=== PATIENT | male | born 1970 | race Caucasian/White ===

== ENCOUNTER 2021-05-06 02:23 | Inpatient (IN) | payer OTHER ==
[2021-05-06 03:07] LABS: #Monocytes 0.4 10x3/uL (0.0-1.1); #Neutrophils 5.3 10x3/uL (1.5-8.4); %Basophils 0.2 % (0.0-2.0); %Lymphocytes 12.8 % (18.0-47.0); %Monocytes 6.1 % (0.0-10.0); %Neutrophils 80.1 % (40.0-75.0); Hemoglobin 15.7 g/dL (13.5-17.5); Mean Corpuscular HGB CONC 35.7 g/dL (32.0-36.0); Mean Corpuscular Hemoglobin 29.6 pg (27.0-33.0); Mean Platelet Volume 8.9 fl (7.4-10.4); Platelet Count 206 10x3/uL (150-450); RBC Distribution Width 11.8 % (11.5-14.5); White Blood Cell (WBC) Count 6.6 10x3/uL (3.5-10.5)
[2021-05-06 03:26] LABS: ALT (SGPT) 59 U/L (8-55); AST (SGOT) 66 U/L (5-34); Albumin 4.1 g/dL (3.5-5.0); Alkaline Phosphatase 50 U/L (40-110); Anion Gap 15 mmol/L (10-20); BUN (Urea Nitrogen) 9 mg/dL (8.9-20.6); CRP (Inflammatory) 5.91 mg/dL (= or < 0.5); Calc. Creatinine Clearance 0 mL/min (70-130); Calcium 8.7 mg/dL (7.8-10.44); Carbon Dioxide 25 mmol/L (22-29); Chloride 95 mmol/L (98-107); Globulin 3.2 g/dL (2.4-3.5); Glucose 192 mg/dL (70-105); Potassium 3.5 mmol/L (3.5-5.1); Protein, Total 7.3 g/dL (6.0-8.3); Sodium 131 mmol/L (136-145)
[2021-05-06] MEDS ORDERED: Dexamethasone 10 MG/ML VIAL ONE (03:32)
[2021-05-06] MEDS ORDERED: Acetaminophen 500 MG TAB ONE (03:33)
[2021-05-06] MEDS ORDERED: Acetaminophen 325 MG TAB PO PRN (05:20)
[2021-05-06] MEDS ORDERED: HumaLOG 300 UNITS/3 ML VIAL SC PRN (05:26)
[2021-05-06] MEDS ORDERED: Dextrose 5% in Water 1,000 ML IV PRN (05:26)
[2021-05-06] MEDS ORDERED: Dextrose 50% Abboject 50 ML SYRINGE SLOW IVP PRN (05:26)
[2021-05-06 05:43] LABS: Magnesium 1.8 mg/dL (1.6-2.6)
[2021-05-06 06:20] VITALS: BMI 34.3
[2021-05-06] MEDS ORDERED: Mometasone/Formoterol 60 PUFF AER INH SCH (06:30)
[2021-05-06] MEDS ORDERED: Cholecalciferol 1,000 UNITS (25 MCG) TAB PO SCH (09:00)
[2021-05-06] MEDS ORDERED: Zinc Sulfate 220 MG CAP PO SCH (09:00)
[2021-05-06] MEDS ORDERED: Aspirin 81 mg Enteric Coated Tablet PO SCH (09:00)
[2021-05-06] MEDS ORDERED: Dexamethasone 4 mg/ml Vial SLOW IVP SCH (09:00)
[2021-05-06] MEDS ORDERED: Enoxaparin Sodium 40 MG/0.4 ML SYRINGE SC SCH (09:00)
[2021-05-06] MEDS ORDERED: Ascorbic Acid 500 mg Chewable Tablet PO SCH (09:00)
[2021-05-06] MEDS ORDERED: Magnesium 2 GM/50 ML 2 GM in Premix Bag 1 BAG IVPB SCH (09:15)
[2021-05-06] MEDS ORDERED: REMDESIVIR 200 MG in Sodium Chloride 0.9% 250 ML 210 ML IV SCH (10:00)
[2021-05-06 12:14] VITALS: BP 118/62; TEMP 99
[2021-05-07] MEDS ORDERED: REMDESIVIR 100 MG in Sodium Chloride 0.9% 250 ML 230 ML IV SCH (09:00)
== END 2021-05-06 15:22 | disposition left against medical advice (07) | DRG 177 ==
LOC: CSHERS 02:23 → CSHTELE 02:24
PROVIDERS: ADMIT Family Medicine; ATTEND Family Medicine
PROC: XW033E5 Introduction of Remdesivir Anti-infective into Peripheral Vein, Percutaneous Approach, New Technology Group 5 (ICD-10-PCS; principal; 2021-05-06)
PROC: 8E0ZXY6 Isolation (ICD-10-PCS; 2021-05-06)
DX: U07.1 COVID-19 (principal); J12.82 Pneumonia due to coronavirus disease 2019; J96.01 Acute respiratory failure with hypoxia; E66.9 Obesity, unspecified; T38.0X5A Adverse effect of glucocorticoids and synthetic analogues, initial encounter; R73.9 Hyperglycemia, unspecified; Z98.890 Other specified postprocedural states; Z68.34 Body mass index [BMI] 34.0-34.9, adult
CPT/HCPCS: 36416; 71045; 71275; 80053; 83605; 83735; 84484; 85025; 85652; 86140; 87040; 93005; 94664; 94760; J1100; J1650; J3475; J7050